=== PATIENT | female | born 1990 | race Caucasian/White ===

== ENCOUNTER 2022-12-22 12:53 | Emergency (ER) | payer BC, OTHER ==
[~2022-12-22] VITALS: Ht 167 cm; Wt 133.0 kg
[2022-12-22] MEDS ORDERED: ASPIRIN 81 MG CHEW (CHILDREN'S ASA) PO STA (13:18)
[2022-12-22 13:24] LABS: BASOPHILS # (AUTO) 0.1 10^3/uL (0.0-0.1); BASOPHILS % (AUTO) 0 % (0-10); EOSINOPHILS # (AUTO) 0.3 10^3/uL (0.0-0.3); EOSINOPHILS % (AUTO) 3 % (0-10); HEMATOCRIT 42 % (35-52); HEMOGLOBIN 14.1 g/dL (11.5-16.0); LYMPHOCYTES # (AUTO) 2.3 10^3/uL (1.0-4.0); LYMPHOCYTES % (AUTO) 20 % (12-44); MEAN CORPUSCULAR HEMOGLOBIN 29 pg (25-34); MEAN CORPUSCULAR HGB CONC 34 g/dL (32-36); MEAN CORPUSCULAR VOLUME 86 fL (80-99); MONOCYTES # (AUTO) 0.6 10^3/uL (0.0-1.0); MONOCYTES % (AUTO) 5 % (0-12); NEUTROPHILS % (AUTO) 71 % (42-75); PLATELET COUNT 277 10^3/uL (130-400); WHITE BLOOD COUNT 11.3 10^3/uL (4.3-11.0)
--- NOTE | 2022-12-22 13:24 | ED Chest Pain ---
General Chief Complaint: Chest Pain Stated Complaint: CHEST PAIN/SOA Nursing Triage Note: PT PRESENTS TO ED WITH COMPLAINTS OF R SIDED CP STARTING APROX 20 MIN [employer] REP. PT STATES R SIDED CP IS WORSE WITH INSPIRATION. (SHILA ABDI) History of Present Illness Date Seen by Provider: December 22, 2022 Time Seen by Provider: 13:10 Initial Comments 32 year old female presents with right sided chest pain that began 30 min [employer] REP. Reports pain is anterior and posterior. Denies an injury. Patient is diaphoretic, with shallow breathing due to pain with inspiration. Pain with light touch to right chest wall. Respiratory rate 20 and SaO2 on RA 97-99%, HR 90s. Denies cardiac history or aggressive activity prior to chest pain, they were cleaning up after lunch when it started. History of Depression, Anxiety and ADHD. She restarted her medications on 12/20/22, she was off of them for 2 weeks due to pharmacy shortage of propranolol and Prozac. She lives in and healthcare is there. Unsure of her LMP, is irregular. Timing/Duration: 1/2 hour Severity/Quality: moderate Location: other (right chest wall and right upper back) Radiation: no radiation Prior CP/Workup: no prior chest pain ASA po MARKETING SERVICES REP: No NTG SL MARKETING SERVICES REP: No Associated Symptoms: No abdominal pain, No back pain; diaphoresis; No dizziness, No edema, No fatigue, No fever/chills, No headache, No heartburn, No nausea/vomiting, No rash; shortness of breath; No swelling/lump in chest, No syncope (SHILA ABDI) Allergies and Home Medications Allergies Coded Allergies: esomeprazole (Verified Allergy, Unknown, 12/22/22) ibuprofen (Verified Allergy, Unknown, 12/22/22) Patient Home Medication List Home Medication List Reviewed: Yes (SHILA ABDI) Nitrofurantoin Monohyd/M-Cryst (Macrobid 100 mg Capsule) 100 Mg Capsule, 1 TAB PO BID Prescribed by: SHILA ABDI on 12/22/22 1616 Review of Systems Review of Systems Constitutional: no symptoms reported, see HPI, diaphoresis EENTM: No Symptoms Reported Cardiovascular: See HPI, Chest Pain (right) Gastrointestinal: No Symptoms Reported, See HPI Genitourinary: No Symptoms Reported, See HPI Musculoskeletal: see HPI, muscle pain (right chest and upper back) Skin: no symptoms reported, see HPI (SHILA ABDI) All Other Systems Reviewed Negative Unless Noted: Yes (SHILA ABDI) Past Nceficn-Gszain-Icxjla Hx Patient Social History Tobacco Use?: Yes Tobacco type used: Cigarettes Smoking Status: Current Everyday Smoker Substance use?: No Alcohol Use?: No Pt feels they are or have been: No (SHILA ABDI) Past Medical History Surgery/Hospitalization HX: MIGRAINES, TRIGEMINAL NEURALGIA, PCOS (SHILA ABDI) Family Medical History Reviewed Nursing Family Hx (SHILA ABDI) Physical Exam Vital Signs Vital Signs - First Documented 12/22/22 13:08 Temp 36.0 Pulse 94 Resp 12 B/P (MAP) 147/117 (127) Pulse Ox 97 (SHAUN MOONEY MD) Vital Signs Capillary Refill : Less Than 3 Seconds (TRINIDADSHILA Edwards) Height, Weight, BMI Height: '" Weight: lbs. oz. kg; 47.00 BMI Method: General Appearance: WD/WN, Anxious HEENT: PERRL/EOMI, TMs Normal, Normal ENT Inspection, Pharynx Normal, Moist Mucous Membranes Neck: Full Range of Motion, Normal Inspection, Non Tender, Supple Respiratory: No Chest Non Tender; Lungs Clear, Normal Breath Sounds, No Accessory Muscle Use, Decreased Breath Sounds (present and equal bilat. ), Other (right chest wall tender to light touch) Cardiovascular: Regular Rate, Rhythm, No Edema, No Murmur, Normal Peripheral Pulses Gastrointestinal: Normal Bowel Sounds, Non Tender, Soft Extremity: Normal Capillary Refill, Normal Inspection, Normal Range of Motion, Non Tender, No Calf Tenderness, No Pedal Edema Neurologic/Psychiatric: Alert, Oriented x3, No Motor/Sensory Deficits, Normal Mood/Affect Skin: Normal Color, Diaphoresis (SHILA ABDI) Progress/Results/Core Measures Results/Orders Lab Results Laboratory Tests Test 12/22/22 13:12 12/22/22 13:42 Range/Units White Blood Count 11.3 H 4.3-11.0 10^3/uL Red Blood Count 4.88 3.80-5.11 10^6/uL Hemoglobin 14.1 11.5-16.0 g/dL Hematocrit 42 35-52 % Mean Corpuscular Volume 86 80-99 fL Mean Corpuscular Hemoglobin 29 25-34 pg Mean Corpuscular Hemoglobin Concent 34 32-36 g/dL Red Cell Distribution Width 13.9 10.0-14.5 % Platelet Count 277 130-400 10^3/uL Mean Platelet Volume 10.0 9.0-12.2 fL Immature Granulocyte % (Auto) 0 % Neutrophils (%) (Auto) 71 42-75 % Lymphocytes (%) (Auto) 20 12-44 % Monocytes (%) (Auto) 5 0-12 % Eosinophils (%) (Auto) 3 0-10 % Basophils (%) (Auto) 0 0-10 % Neutrophils # (Auto) 8.0 H 1.8-7.8 10^3/uL Lymphocytes # (Auto) 2.3 1.0-4.0 10^3/uL Monocytes # (Auto) 0.6 0.0-1.0 10^3/uL Eosinophils # (Auto) 0.3 0.0-0.3 10^3/uL Basophils # (Auto) 0.1 0.0-0.1 10^3/uL Immature Granulocyte # (Auto) 0.0 0.0-0.1 10^3/uL Prothrombin Time 13.2 12.2-14.7 SEC INR Comment 1.0 0.8-1.4 Activated Partial Thromboplast Time 28 24-35 SEC Sodium Level 142 135-145 MMOL/L Potassium Level 4.1 3.6-5.0 MMOL/L Chloride Level 107 98-107 MMOL/L Carbon Dioxide Level 24 21-32 MMOL/L Anion Gap 11 5-14 MMOL/L Blood Urea Nitrogen 11 7-18 MG/DL Creatinine 0.81 0.60-1.30 MG/DL Estimat Glomerular Filtration Rate 99 BUN/Creatinine Ratio 14 Glucose Level 98 70-105 MG/DL Calcium Level 9.3 8.5-10.1 MG/DL Corrected Calcium 9.1 8.5-10.1 MG/DL Magnesium Level 2.0 1.6-2.4 MG/DL Total Bilirubin 0.3 0.1-1.0 MG/DL Aspartate Amino Transf (AST/SGOT) 43 H 5-34 U/L Alanine Aminotransferase (ALT/SGPT) 69 H 0-55 U/L Alkaline Phosphatase 46 40-136 U/L Myoglobin 42.0 10.0-92.0 NG/ML Troponin I < 0.028 <0.028 NG/ML B-Type Natriuretic Peptide 15.0 <100.0 PG/ML Total Protein 7.2 6.4-8.2 GM/DL Albumin 4.2 3.2-4.5 GM/DL Urine Color YELLOW Urine Clarity CLEAR Urine pH 6.0 5-9 Urine Specific [place] 1.025 H 1.016-1.022 Urine Protein NEGATIVE NEGATIVE Urine Glucose (UA) NEGATIVE NEGATIVE Urine Ketones NEGATIVE NEGATIVE Urine Nitrite NEGATIVE NEGATIVE Urine Bilirubin NEGATIVE NEGATIVE Urine Urobilinogen 0.2 < = 1.0 MG/DL Urine Leukocyte Esterase NEGATIVE NEGATIVE Urine RBC (Auto) NEGATIVE NEGATIVE Urine RBC NONE /HPF Urine WBC 2-5 /HPF Urine Squamous Epithelial Cells 5-10 /HPF Urine Crystals NONE /LPF Urine Bacteria MODERATE H /HPF Urine Casts NONE /LPF Urine Mucus NEGATIVE /LPF Urine Culture Indicated YES (SHAUN MOONEY MD) Medications Given in ED Current Medications Medications Dose Ordered Sig/Rakesh Route Start Time Stop Time Status Last Admin Dose Admin Al Hydrox/Mg Hydrox/Simethicone 30 ml ONCE ONCE PO 12/22/22 14:00 12/22/22 14:01 DC 12/22/22 14:09 30 ML Lidocaine HCl 15 ml ONCE ONCE PO 12/22/22 14:00 12/22/22 14:01 DC 12/22/22 14:09 15 ML (SHAUN MOONEY MD) Vital Signs/I&O 12/22/22 12/22/22 13:08 14:47 Temp 36.0 Pulse 94 89 Resp 12 16 B/P (MAP) 147/117 (127) 139/98 Pulse Ox 97 98 (SHAUN MOONEY MD) Blood Pressure Mean: 127 Progress Progress Note : Time: 13:10 Progress Note Patient assessed, will obtain chest pain work-up including labs, EKG, chest x-r ay and aspirin 324 mg orally. 1345 patient ambulated to bathroom, less SOA and diaphoresis. Patient has history of anxiety and does not believe her current symptoms are similar to her panic attacks from the past. 1400 EKG and labs do not indicate a cardiac etiology. Discussed with patient, she had issues in the past with eggs that were runny and she ate those today. She does feel some heartburn, so we will give GI cocktail and Toradol 30 mg IV for chest/muscle pain. Reports allergy to Ibuprofen, but side effect is "bumps in her throat" when she had EGD. She takes Aleve prn for headaches with no side effect. 1420 patient reports improvement after GI cocktail and toradol. No UTI symptoms, will treat and call with culture results. Discharge instructions and return precautions reviewed with the patient in detail. Emphasized that she is not eat eggs that are not thoroughly cooked purulent (SHILA ABDI) Initial ECG Impression Date: December 22, 2022 Initial ECG Impression Time: 13:18 Initial ECG Rate: 90 Initial ECG Rhythm: Normal Sinus Initial ECG Intervals: Normal Initial ECG Intervals [place] 142, QRS D 87, QT 342, QTc 389. Bland P38, R5, T21. Initial ECG Impression: Normal Initial ECG Comparisson: No Previous ECG Available Comment No ST elevation or arrhythmia noted. (SHILA ABDI) Diagnostic Imaging Diagonstic Imaging: Xray Plain Films/CT/US/NM/MRI: chest Comments NAME: [facility] REC#: [id number] PT STATUS: REG ER : 1990 PHYSICIAN: SHILA ABDI ADMIT DATE: 12/22/22/ER Signed Date of Exam:12/22/22 CHEST 1 VIEW, AP/PA ONLY CHEST 1 VIEW, AP/PA ONLY Indication: Chest pain. Comparison: None available. Findings: No focal airspace disease in the visualized lungs. No pleural effusion or pneumothorax. Normal cardiomediastinal silhouette. Impression: 1. No acute cardiopulmonary process by portable radiography. Dictated by: Dictated on workstation # [id number] Dict: 12/22/22 1342 Trans: 12/22/22 1342 [facility] [id number] Interpreted by: ANTONIA TRUONG MD Electronically signed by: ANTONIA TRUONG MD 12/22/22 134 Reviewed: Reviewed by Me (SHILA ABDI) Departure Impression Primary Impression: Chest wall pain Additional Impressions: Gastroesophageal reflux disease Qualified Codes: K21.9 - Gastro-esophageal reflux disease without esophagitis UTI (urinary tract infection) Qualified Codes: N30.00 - Acute cystitis without hematuria Disposition: HOME, SELF-CARE Condition: Improved Departure-Patient Inst. Decision time for Depature: 14:15 (SHILA ABDI) Referrals: NO,LOCAL PHYSICIAN (PCP/Family) Primary Care Physician Patient Instructions: Chest Pain That Is Not Caused by the Heart (DC), Urinary Tract Infection, Adult (DC) Add. Discharge Instructions: Avoid runny eggs that seem to precipitate your esophageal problems. You can take Pepcid 10 mg [id number] twice daily for the next week or 2. Continue all of your home medications. Take antibiotics as prescribed, we will call you when the culture results are available. Increase water intake, empty bladder every 2 hours. You may alternate between Aleve and Tylenol 650 mg for pain. Return to the emergency department for new, urgent healthcare needs. All discharge instructions reviewed with patient and/or family. Voiced understanding. Scripts Nitrofurantoin Monohyd/M-Cryst (Macrobid 100 mg Capsule) 100 Mg Capsule 1 TAB PO BID, #6 CAP 0 Refills Prov: SHILA ABDI 12/22/22 ATTENDING PHYSICIAN NOTE: I was physically present as attending physician in the emergency department during the care of this patient, but I was not directly involved in the decision making or delivery of care for this patient. (SHAUN MOONEY MD) SHILA ABDI December 22, 2022 13:24 SHAUN MOONEY MD December 22, 2022 21:20
[2022-12-22 13:31] LABS: PROTHROMBIN TIME PATIENT 13.2 SEC (12.2-14.7)
[2022-12-22 13:32] LABS: ALBUMIN 4.2 GM/DL (3.2-4.5)
[2022-12-22 13:33] LABS: POTASSIUM 4.1 MMOL/L (3.6-5.0)
[2022-12-22] MEDS ORDERED: ASPIRIN 81 MG CHEW (CHILDREN'S ASA) ONE (13:33)
[2022-12-22 13:34] LABS: CALCIUM 9.3 MG/DL (8.5-10.1)
[2022-12-22 13:35] LABS: TOTAL PROTEIN 7.2 GM/DL (6.4-8.2)
[2022-12-22 13:37] LABS: BILIRUBIN,TOTAL 0.3 MG/DL (0.1-1.0)
[2022-12-22 13:39] LABS: CREATININE SERUM 0.81 MG/DL (0.60-1.30)
--- NOTE | 2022-12-22 13:43 | Diagnostic Imaging Report ---
CHEST 1 VIEW, AP/PA ONLY Indication: Chest pain. Comparison: None available. Findings: No focal airspace disease in the visualized lungs. No pleural effusion or pneumothorax. Normal cardiomediastinal silhouette. Impression: 1. No acute cardiopulmonary process by portable radiography. Dictated by: Dictated on workstation # [id number]
[2022-12-22 13:50] LABS: BILIRUBIN,URINE NEGATIVE (NEGATIVE); CLARITY,URINE CLEAR; COLOR,URINE YELLOW; GLUCOSE, URINE (UA) NEGATIVE (NEGATIVE); KETONES,URINE NEGATIVE (NEGATIVE); LEUKOCYTE ESTERASE ,URINE NEGATIVE (NEGATIVE); NITRITE,URINE NEGATIVE (NEGATIVE); PROTEIN,URINE NEGATIVE (NEGATIVE)
[2022-12-22 13:57] LABS: BACTERIA,URINE MODERATE /HPF
[2022-12-22] MEDS ORDERED: ANTACID SUSP 30 ML UDC (MYLANTA) PO ONE (14:00)
[2022-12-22] MEDS ORDERED: LIDOCAINE 2% VISCOUS 15 ML UDC PO ONE (14:00)
[2022-12-22] MEDS ORDERED: KETOROLAC 30 MG/ML VIAL IVP STA (14:01)
[2022-12-22] MEDS ORDERED: NITR-65 PO (14:38)
[2022-12-22 14:47] VITALS: BP 139/98
== END 2022-12-22 14:47 | disposition home or self-care (01) ==
LOC: ER 12:57
DX: K21.9 Gastro-esophageal reflux disease without esophagitis (principal); N39.0 Urinary tract infection, site not specified; F32.A Depression, unspecified; R51.9 Headache, unspecified; T43.226A Underdosing of selective serotonin reuptake inhibitors, initial encounter; T44.7X6A Underdosing of beta-adrenoreceptor antagonists, initial encounter; F17.210 Nicotine dependence, cigarettes, uncomplicated; Z91.138 Patient's unintentional underdosing of medication regimen for other reason; Z79.899 Other long term (current) drug therapy; Z79.1 Long term (current) use of non-steroidal anti-inflammatories (NSAID)
CPT/HCPCS: 36415; 71045; 80053; 81000; 83735; 83874; 83880; 84484; 84703; 85025; 85610; 85730; 87088; 93005; 93041